=== PATIENT | female | born 1980 | race Caucasian/White ===

== ENCOUNTER 2016-06-02 14:03 | Emergency (ER) | payer MEDICAID ==
[2016-06-02 14:08] VITALS: BP 109/73; PULSE 94; RESP 16; TEMP 98.1; O2SAT 94
[2016-06-02 14:36] LABS: COLOR YELLOW; LEUKOCYTE ESTERASE,URINE TRACE (NEGATIVE); NITRITE,URINE NEGATIVE (NEGATIVE)
[2016-06-02 14:41] LABS: BACTERIA 3+ /hpf (NONE SEEN); MUCUS TRACE /lpf (NONE-1+)
--- NOTE | 2016-06-02 15:04 | EDPHY ---
H & P Time Seen by Provider: 06/02/16 15:00 HPI/ROS: CHIEF COMPLAINT: Urinary symptoms. HISTORY OF PRESENT ILLNESS: The patient is a 35-year-old female who presents with dysuria, urinary urgency, and urinary hesitancy. This is similar to her previous UTIs. She admits associated nausea. She denies back pain, vomiting, fever, or other complaints. REVIEW OF SYSTEMS: A complete 10-point review of systems was performed and is negative except for those items mentioned in the HPI. Past Medical/Surgical History: UTI. Social History: Smoker. Smoking Status: Current every day smoker Physical Exam: General Appearance: Alert, nontoxic-appearing Eyes: Pupils equal and round ENT, Mouth: Mucous membranes moist Neck: Normal inspection Gastrointestinal: Abdomen is soft and non-tender Back: No CVA tenderness Neurological: A&O, nonfocal, normal gait Skin: Warm and dry, no rash Psychiatric: Mood and affect normal Constitutional: Initial Vital Signs Temperature (C) 36.7 C 06/02/16 14:06 Heart Rate 94 06/02/16 14:06 Respiratory Rate 16 06/02/16 14:06 Blood Pressure 109/73 06/02/16 14:06 O2 Sat (%) 94 06/02/16 14:06 O2 Delivery Mode Room Air Allergies/Adverse Reactions: latex Allergy (Verified 06/02/16 14:05) Penicillins Allergy (Verified 06/02/16 14:05) Sulfa (Sulfonamide Antibiotics) Allergy (Verified 06/02/16 14:05) Home Medications: Medication Instructions Recorded Amitriptyline HCl 12/25/15 Buspar (*) 12/25/15 Strattera 12/25/15 Cephalexin [Keflex (*)] 500 mg PO QID #20 cap 06/02/16 Medical Decision Making ED Course/Re-evaluation: UA and urine cultures ordered. Urinalysis consistent urinary tract infection. Keflex 500 mg orally given. - Data Points Laboratory Results: 06/02/16 14:08 Urine Color YELLOW Urine Appearance CLEAR Urine pH 7.0 (5.0-7.5) Ur Specific [place] 1.027 (1.002-1.030) Urine Protein NEGATIVE (NEGATIVE) Urine Ketones TRACE H (NEGATIVE) Urine Blood NEGATIVE (NEGATIVE) Urine Nitrate NEGATIVE (NEGATIVE) Urine Bilirubin NEGATIVE (NEGATIVE) Urine Urobilinogen 2.0 H EU (0.2-1.0) Ur Leukocyte Esterase TRACE H (NEGATIVE) Urine RBC 5-10 H /hpf (0-3) Urine WBC 10-15 H /hpf (0-3) Ur Epithelial Cells 1+ /lpf (NONE-1+) Urine Bacteria 3+ H /hpf (NONE SEEN) Urine Mucus TRACE /lpf (NONE-1+) Ur Culture Indicated? INDICATED H (NI) Urine Glucose NEGATIVE (NEGATIVE) Urine Test NEGATIVE Departure - Departure Disposition: Home, Routine, Self-Care Clinical Impression: UTI (urinary tract infection) Qualifiers: Urinary tract infection type: site unspecified Hematuria presence: without hematuria Qualifier Code: (N39.0) Urinary tract infection, site not specified Condition: Good Instructions: Cephalexin (By mouth), Urinary Tract Infection in Women (ED) Additional Instructions: Take Keflex as prescribed. Drink plenty of fluids. Follow up with your primary care provider in the next 2-3 days if symptoms are not improving. Return to the emergency department if you experience serious worsening of condition. Referrals: [facility] [Outside] - As per Instructions Stand Alone Forms: Work Excuse Prescriptions: Cephalexin [Keflex (*)] 500 mg PO QID #20 cap Report Scribed for: Tamara De La Rosa Report Scribed by: James Whitt Date of Report: 06/02/16 Time of Report: 15:03
== END 2016-06-02 15:14 | disposition home or self-care (01) ==
DX: N39.0 Urinary tract infection, site not specified (principal); B96.89 Other specified bacterial agents as the cause of diseases classified elsewhere; F17.200 Nicotine dependence, unspecified, uncomplicated; Z91.040 Latex allergy status